=== PATIENT | female | born 1975 | race African-American/Black ===

== ENCOUNTER 2019-06-11 17:49 | Emergency (ER) | payer OTHER ==
[~2019-06-11] VITALS: Ht 152.4 cm; Wt 68.0 kg
[2019-06-11 17:51] VITALS: BP 146/96
== END 2019-06-11 19:25 | disposition home or self-care (01) ==
LOC: ER 17:49
DX: M79.645 Pain in left finger(s) (principal); J45.909 Unspecified asthma, uncomplicated; F32.9 Major depressive disorder, single episode, unspecified; I10 Essential (primary) hypertension; Z88.0 Allergy status to penicillin

== ENCOUNTER 2019-08-09 14:58 | Emergency (ER) | payer OTHER ==
[~2019-08-09] VITALS: Ht 152.4 cm; Wt 68.0 kg
[2019-08-09] MEDS ORDERED: NORCO 5-325 TA1 EAC1 PO ×2 (17:12→17:15)
[2019-08-09] MEDS ORDERED: MOBIC7.5 MG PO ×2 (17:12→17:15)
[2019-08-09 17:50] VITALS: BP 132/76
== END 2019-08-09 17:50 | disposition home or self-care (01) ==
LOC: ER 14:58
DX: M25.512 Pain in left shoulder (principal); I10 Essential (primary) hypertension; F32.9 Major depressive disorder, single episode, unspecified; J45.909 Unspecified asthma, uncomplicated